=== PATIENT | male | born 1960 ===

== ENCOUNTER 2022-01-06 10:30 | Inpatient (IN) | payer OTHER ==
[~2022-01-06] VITALS: Ht 172.7 cm; Wt 102.1 kg
[2022-01-06] MEDS ORDERED: IRBESARTAN-HCT1 EACH PO (10:44)
[2022-01-06] MEDS ORDERED: PLAVIX75 MG PO (10:44)
[2022-01-06] MEDS ORDERED: LEVO-T100 MCG PO (10:44)
[2022-01-06] MEDS ORDERED: ZOCOR20 MG PO (10:45)
[2022-01-06] MEDS ORDERED: AMIODARONE HCL200 MG PO (10:45)
[2022-01-06] MEDS ORDERED: ADULT LOW DOSE81 M1 PO (10:45)
[2022-01-11] MEDS ORDERED: TRAZODONE HCL50 MG (08:06)
[2022-01-11] MEDS ORDERED: LORAZEPAM0.5 MG (08:06)
[2022-01-11] MEDS ORDERED: BUPROPION HCL100 M1 (08:06)
[2022-01-13] MEDS ORDERED: XARELTO10 MG PO (06:24)
[2022-01-13] MEDS ORDERED: BACTRIM DS TAB1 EACH PO (06:24)
[2022-01-13] MEDS ORDERED: OXYC1TAB9 PO (06:24)
[2022-01-13] MEDS ORDERED: INTEGRA PLUS C1 EACH PO (06:24)
== END 2022-01-13 21:04 | DRG 470 ==
LOC: O/R 01-11 06:00 → SURH 01-11 10:00
PROVIDERS: ADMIT Orthopaedic Surgery Sports Medicine; ATTEND Orthopaedic Surgery Sports Medicine
PROC: 0SRC0J9 Replacement of Right Knee Joint with Synthetic Substitute, Cemented, Open Approach (ICD-10-PCS; principal; 2022-01-11 10:00)
DX: M17.11 Unilateral primary osteoarthritis, right knee (principal); D69.3 Immune thrombocytopenic purpura; I10 Essential (primary) hypertension; Z20.822 Contact with and (suspected) exposure to COVID-19